=== PATIENT | female | born 1945 | race Caucasian/White ===

== ENCOUNTER 2017-03-28 20:58 | Emergency (ER) | payer MEDICARE, OTHER ==
[~2017-03-28] VITALS: Ht 162.6 cm; Wt 113.4 kg
[2017-03-28] MEDS ORDERED: LIDOCAINE VISCOUS MM STA (21:12)
[2017-03-28] MEDS ORDERED: LIDOCAINE VISCOUS ONE (21:16)
--- NOTE | 2017-03-28 21:21 | NUR ---
lab with pt
--- NOTE | 2017-03-28 21:22 | PCM.EKG ---
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
[2017-03-28 21:31] LABS: BASOPHIL % 0.3 % (0.0-0.2); EOSINOPHIL # 0.4 10^3/uL (0.0-0.2); HEMOGLOBIN 11.6 g/dL (12.0-15.0); LYMPHOCYTES # 2.6 10^3/uL (1.0-4.8); LYMPHOCYTES % 19.9 % (24.0-44.0); MEAN CELL HGB CONCENTRATION 32.5 g/dL (33-37); MEAN PLATELET VOLUME 9.4 fL (7.8-11.0); MONOCYTES # 1.1 10^3/uL (0.3-0.8); MONOCYTES % 8.7 % (5.0-12.0); NEUTROPHIL # 8.9 10^3/uL (1.8-7.7); NEUTROPHILS % 67.3 % (41.0-85.0); WHITE BLOOD CELL 13.1 10^3/uL (4.5-11.0)
[2017-03-28] MEDS ORDERED: FURO40TA4 PO (21:31)
[2017-03-28] MEDS ORDERED: POTA20TA14 PO (21:31)
[2017-03-28] MEDS ORDERED: MONT10TA6 PO (21:31)
[2017-03-28] MEDS ORDERED: CERA453C TP (21:31)
[2017-03-28] MEDS ORDERED: PANT40TA5 PO (21:31)
[2017-03-28] MEDS ORDERED: LOSA1TAB19 PO (21:31)
[2017-03-28] MEDS ORDERED: FLUT9.9S16 (21:31)
[2017-03-28] MEDS ORDERED: CETI10TA24 PO (21:31)
[2017-03-28] MEDS ORDERED: FLUO15OI TP (21:31)
[2017-03-28] MEDS ORDERED: MULT-678 PO (21:31)
[2017-03-28] MEDS ORDERED: METO25TA4 PO (21:31)
--- NOTE | 2017-03-28 21:31 | NUR ---
PORTABLE XRAY WITH PT
--- NOTE | 2017-03-28 21:42 | DIREP ---
PROCEDURE:CHEST 1 VIEW COMPARISON:None. INDICATIONS:cough, SOB FINDINGS: LUNGS/PLEURA:No confluent area of consolidation. No evidence of pleural effusion. Increased density at the left base due to overlapping breast tissue. VASCULATURE:Within normal limits. CARDIAC:No cardiomegaly. SILVIA/MEDIASTINUM:No visible mass or adenopathy. BONES:No acute fracture. OTHER:No additional findings. CONCLUSION: 1. No acute cardiopulmonary changes. Dictated by: Dario Sanchez M.D. on 03/28/2017 at 09:41 PM
[2017-03-28 21:54] LABS: CALCIUM 9.5 mg/dL (8.4-10.5); CARBON DIOXIDE 29.7 mmol/L (20.0-32)
[2017-03-28] MEDS ORDERED: DUONEB 0.5 MG-3 MG/3 ML SOLN IH STA (21:56)
[2017-03-28] MEDS ORDERED: SOLU-MEDROL IV STA (21:59)
[2017-03-28] MEDS ORDERED: MAGNESIUM-D5W 1 GM/100 ML SOLN 100 ML IV STA (21:59)
--- NOTE | 2017-03-28 21:59 | NUR ---
RT SCOTT WITH RT IN PT ROOM AT THIS TIME.
[2017-03-28] MEDS ORDERED: DUONEB 0.5 MG-3 MG/3 ML SOLN IH ONE (22:02)
[2017-03-28] MEDS ORDERED: SOLU-MEDROL ONE (22:15)
[2017-03-28] MEDS ORDERED: MAGNESIUM SULFATE 50 ML IV ONE (22:15)
--- NOTE | 2017-03-28 23:21 | ER.PDOC ---
General Chief Complaint: Cough/Congestion Stated Complaint: COUGH,VOMITING Time seen by MD: 21:20 Source: patient, family Exam Limitations: no limitations History of Present Illness Initial Comments pt has had persistent cough over the past few months , became acutely exacerbated this evening Timing/Duration: 4-6 hours Severity: moderate Activities at Onset: rest Prior Episodes/Possible Cause: chronic episodes (usually at night) Associated Symptoms: cough Allergies: Coded Allergies: oxymetazoline (Verified Allergy, Unknown, 03/28/17) phenylephrine (Verified Allergy, Unknown, 03/28/17) Home Meds Reported Medications Mu-Vits-Min Th/Lycopene/Lutein (CENTRUM SILVER TABLET) 1 Each Tablet, 1 EACH PO DAILY24, TABLET 03/28/17 Ceramides 1,3,6-11 (CERAVE) 453 Gm Cream..g., 453 GM TP BID 03/28/17 Fluocinonide (FLUOCINONIDE) 15 Gm Oint...g., 30 GM TP BID Y for .eczema 03/28/17 Montelukast Sodium (SINGULAIR) 10 Mg Tablet, 10 MG PO DAILY24, TABLET 03/28/17 Cetirizine Hcl (ZYRTEC) 10 Mg Tablet, 10 MG PO DAILY24, TABLET 03/28/17 Fluticasone Furoate (Flonase Sensimist) 27.5 Mcg/Actuation [place].susp, NA DAILY24 03/28/17 Potassium Chloride (POTASSIUM CHLORIDE) 20 Meq Tab.er.prt, 20 MEQ PO BID 03/28/17 Furosemide (FUROSEMIDE) 40 Mg Tablet, 40 MG PO DAILY24, TABLET 03/28/17 Pantoprazole Sodium (PANTOPRAZOLE SODIUM) 40 Mg Tablet.dr, 40 MG PO BID 03/28/17 Losartan/Hydrochlorothiazide (LOSARTAN-HCTZ 50-12.5 MG TAB) 1 Each Tablet, 1 EACH PO DAILY24, TABLET 03/28/17 Metoprolol Tartrate 25MG (LOPRESSER 25MG) 25 Mg Tablet, 25 MG PO BID for HYPERTENSION, #60 TAB 03/28/17 Past Medical History Medical History: thyroid disease Surgical History: cholecystectomy, hysterectomy, knee, shoulder, tonsillectomy Social History Smoking: non-smoker Alcohol Use: none Drug Use: none Review of Systems Constitutional: no symptoms reported EENTM: see HPI, throat pain Respiratory: see HPI, cough (increases at night) Cardiovascular: no symptoms reported Gastrointestinal: no symptoms reported Musculoskeletal: no symptoms reported Skin: no symptoms reported Psychiatric/Neurological: no symptoms reported Physical Exam General Appearance: Mild Distress HEENT: PERRL/EOMI, Normal ENT Inspection, TMs Normal, Pharynx Normal Neck: Non-Tender, Full Range of Motion, Supple, Normal Inspection Respiratory: chest non-tender, lungs clear, normal breath sounds, no respiratory distress, no accessory muscle use Cardiovascular: Normal Peripheral Pulses, Regular Rate, Rhythm, No Edema, No Gallop, No JVD, No Murmur Gastrointestinal: Normal Bowel Sounds, No Organomegaly, No Pulsatile Mass, Non Tender, Soft Neurologic/Psychiatric: paperhanger and painter II-XII NML as Tested, No Motor/Sensory Deficits, Alert, Normal Mood/Affect, Oriented x 3 Skin: Normal Color, Warm/Dry Lymphatic: No Adenopathy Results/Orders Results/Orders Laboratory Tests Test 03/28/17 21:18 White Blood Count 13.1 10^3/uL (4.5-11.0) Red Blood Count 4.15 10^6/uL (4.00-5.20) Hemoglobin 11.6 g/dL (12.0-15.0) Hematocrit 35.7 % (36.0-46.0) Mean Corpuscular Volume 86.0 fL (78-100) Mean Corpuscular Hemoglobin 28.0 pg (26-34) Mean Corpuscular Hemoglobin Concent 32.5 g/dL (33-37) Red Cell Distribution Width 14.0 % (11.5-14.5) Platelet Count 262 10^3/uL (150-400) Mean Platelet Volume 9.4 fL (7.8-11.0) Neutrophils (%) (Auto) 67.3 % (41.0-85.0) Lymphocytes (%) (Auto) 19.9 % (24.0-44.0) Monocytes (%) (Auto) 8.7 % (5.0-12.0) Neutrophils # (Auto) 8.9 10^3/uL (1.8-7.7) Lymphocytes # (Auto) 2.6 10^3/uL (1.0-4.8) Monocytes # (Auto) 1.1 10^3/uL (0.3-0.8) Absolute Immature Granulocyte (auto 0.10 10^3 u/L (0-2) Eosinophils % 3.0 % (0.0-5.0) Basophils % 0.3 % (0.0-0.2) Basophils # 0.0 10^3/uL (0.0-0.1) Eosinophil Count 0.4 10^3/uL (0.0-0.2) Sodium Level 140 mmol/L (132-145) Potassium Level 3.9 mmol/L (3.6-5.2) Chloride Level 102.0 mmol/L (96-109) Carbon Dioxide Level 29.7 mmol/L (20.0-32) Anion Gap 12.2 Blood Urea Nitrogen 24 mg/dL (7-18) Creatinine 1.70 mg/dL (0.59-1.40) Estimated GFR () 35.6 (>/=60) BUN/Creatinine Ratio 14.0 Glucose Level 158 mg/dL (70-110) Calcium Level 9.5 mg/dL (8.4-10.5) Magnesium Level 1.5 mg/dL (1.8-2.4) Total Bilirubin 0.3 mg/dL (0.2-1.0) Aspartate Amino Transf (AST/SGOT) 19 U/L (0-35) Alanine Aminotransferase (ALT/SGPT) 23 U/L (12-78) Alkaline Phosphatase 157 U/L (50-136) Pro-B-Type Natriuretic Peptide 111 pg/mL (0-125) Total Protein 7.6 g/dL (6.4-8.2) Albumin 3.4 g/dL (3.4-5.0) Globulin 4.2 Percent Immature Gran (Cell Imm) 0.80 % (0.00-0.50) Administered Medications Medications (Trade) Dose Ordered Sig/Tommy Route PRN Reason Start Time Stop Time Status Last Admin Dose Admin Lidocaine HCl (Lidocaine Viscous) 15 ml STAT STAT MM 03/28/17 21:12 03/28/17 21:16 DC 03/28/17 21:20 Albuterol/ Ipratropium (Duoneb 0.5 Mg-3 Mg/3 ml Soln) 3 ml STAT STAT IH 03/28/17 21:56 03/28/17 21:59 DC 03/28/17 21:59 Magnesium Sulfate/ Dextrose 100 ml @ 100 mls/hr OT STAT IV 03/28/17 21:59 03/28/17 22:58 DC 03/28/17 22:24 Methylprednisolone Sodium Succinate (Solu-Medrol) 125 mg STAT STAT IV 03/28/17 21:59 03/28/17 22:01 DC 03/28/17 22:24 Progress Progress pt low on magnesium will augment parenterally, give steroids for short course, fair response to bronchodilators EKG/XRAY/CT/US XRAY: chest XRAY Comments: WNL, no infiltrates Departure Time of Disposition: 23:15 Disposition: 01 HOME, SELF-CARE Impression: Primary Impression: Chronic asthmatic bronchitis with acute exacerbation Additional Impression: Allergic rhinitis Condition: Improved Referrals: PCP,UNKNOWN (PCP) PRIMARY CARE PROVIDER Additional Instructions: follow up with PCP in [place], may need to consider pulmonary workup Duration or Time Spent with Pa: 30 Problem Qualifiers Additional Impression: Allergic rhinitis Chronicity: unspecified Allergic rhinitis trigger: unspecified Allergic rhinitis seasonality: non-seasonal Qualified Codes: J30.89 - Other allergic rhinitis TRACI LLAMAS MD Mar 28, 2017 23:21
--- NOTE | 2017-03-28 23:31 | NUR ---
DISCHARGE DISCHARGE INSTRUCTIONS AND PRESCRIPTION MEDICATION DISCUSSED. PT AND FAMILY VERBALIZED UNDERSTANDING. ENCOURAGED TO RETURN FOR ANY CONCERNS.
[2017-03-28 23:35] VITALS: BP 116/60
== END 2017-03-28 23:31 | disposition home or self-care (01) ==
LOC: ER 20:58
DX: J44.1 Chronic obstructive pulmonary disease with (acute) exacerbation (principal); J00 Acute nasopharyngitis [common cold]; E07.9 Disorder of thyroid, unspecified; Z90.49 Acquired absence of other specified parts of digestive tract; Z90.710 Acquired absence of both cervix and uterus; Z79.899 Other long term (current) drug therapy
CPT/HCPCS: 36415; 71010; 80053; 83735; 83880; 85025; 87040 ×2; 93005; 94640; 96365; 96375; 99285; J2930; J3475; J3490; J7620

== ENCOUNTER 2018-03-17 13:22 | Emergency (ER) | payer MEDICARE, OTHER ==
[~2018-03-17] VITALS: Ht 162.6 cm; Wt 111.6 kg
[2018-03-17] VITALS (7 sets, daily range): BP systolic 118–141; BP diastolic 53–84
[~2018-03-17 13:22] MED LIST: CERA453C TP; CETI10TA24 PO; FLUO15OI TP; FLUT9.9S16; FURO40TA4 PO; LOSA1TAB19 PO; METO25TA4 PO; MONT10TA6 PO; MULT-678 PO; PANT40TA5 PO; POTA20TA14 PO
--- NOTE | 2018-03-17 13:42 | NUR ---
ARRIVAL TRANSPORTED TO ER # 4 VIA WHEELCHAIR. ALERT AND ORIENTED X3. C/O PAIN TO RIGHT SIDE OF FACE AT A 3/10 ON NUMERICAL SCALE. PT STATED, "I FELL LAST FRIDAY. I WENT TO URGENT CARE IN [facility]. I STARTED HAVING RIGHT SIDE FACE PAIN ABOUT 30 MINUTES AGO. WHILE RIDING IN A CAR FROM [place]." SHE FLEW IN FROM [place] TO [place] TODAY AT 1100.
--- NOTE | 2018-03-17 14:05 | NUR ---
EKG COMPLETE EKG COMPLETE. CHANGED INTO GOWN. EARTH SCIENCE TECHNICIAN AT BEDSIDE TO DRAW BLOOD.
--- NOTE | 2018-03-17 14:10 | ER.PDOC ---
General Chief Complaint: Dizziness Stated Complaint: DIZZINESS,FACIAL PAIN Time seen by MD: 14:07 Source: patient Exam Limitations: no limitations History of Present Illness Initial Comments Dizziness and right facial pain since falling 1 week ago and hitting her right face. Occurred: last week Severity: moderate Usually: walks w/o assistance Worsened By: nothing Allergies: Coded Allergies: oxymetazoline (Verified Allergy, Unknown, 03/28/17) phenylephrine (Verified Allergy, Unknown, 03/28/17) Home Meds Reported Medications Mu-Vits-Min Th/Lycopene/Lutein (CENTRUM SILVER TABLET) 1 Each Tablet, 1 EACH PO DAILY24, TABLET 03/28/17 Ceramides 1,3,6-11 (CERAVE) 453 Gm Cream..g., 453 GM TP BID 03/28/17 Fluocinonide (FLUOCINONIDE) 15 Gm Oint...g., 30 GM TP BID PRN for .eczema 03/28/17 Montelukast Sodium (SINGULAIR) 10 Mg Tablet, 10 MG PO DAILY24, TABLET 03/28/17 Cetirizine Hcl (ZYRTEC) 10 Mg Tablet, 10 MG PO DAILY24, TABLET 03/28/17 Fluticasone Furoate (Flonase Sensimist) 27.5 Mcg/Actuation [place].susp, NA DAILY24 03/28/17 Potassium Chloride (POTASSIUM CHLORIDE) 20 Meq Tab.er.prt, 20 MEQ PO BID 03/28/17 Furosemide (FUROSEMIDE) 40 Mg Tablet, 40 MG PO DAILY24, TABLET 03/28/17 Pantoprazole Sodium (PANTOPRAZOLE SODIUM) 40 Mg Tablet.dr, 40 MG PO BID 03/28/17 Losartan/Hydrochlorothiazide (LOSARTAN-HCTZ 50-12.5 MG TAB) 1 Each Tablet, 1 EACH PO DAILY24, TABLET 03/28/17 Metoprolol Tartrate 25MG (LOPRESSER 25MG) 25 Mg Tablet, 25 MG PO BID for HYPERTENSION, #60 TAB 03/28/17 Past Medical History Medical History: hypertension Surgical History: cholecystectomy, hysterectomy, knee, shoulder, tonsillectomy Social History Smoking: non-smoker Alcohol Use: none Drug Use: none Review of Systems Constitutional: no symptoms reported Mouth: no symptoms reported Throat: no symptoms reported Respiratory: no symptoms reported Cardiovascular: no symptoms reported Gastrointestinal: no symptoms reported All Other Systems: Reviewed and Negative Physical Exam General Appearance: alert, no distress EENT: PERRL Neck: supple Respiratory: no resp distress, breath sounds nml CVS: reg rate & rhythm, heart sounds.nml Abdomen: non-tender, no organomegaly, no distention Skin: color nml Extremities: non-tender, nml ROM, no pedal edema Neuro/Psych: nml orientation, nml speech/cognition, nml mood/affect Cranial Nerves: nml as tested, no evidence of acute CVA Sensorimotor: nml motor, nml sensation Comments Right facial tenderness, right periorbital ecchymosis, healing wound beneath the chin Results/Orders Results/Orders Laboratory Tests Test 03/17/18 14:05 03/17/18 14:15 Urine Collection Type UNKNOWN Urine Color STRAW (YELLOW) Urine Appearance CLEAR (CLEAR) Urine Bilirubin NEGATIVE MG/DL (NEGATIVE) Urine Ketones NEGATIVE (NEGATIVE) Urine Specific [place] 1.010 (1.005-1.035) Urine pH 6 (5.0-6.0) Urine Protein NEGATIVE (NEGATIVE) Urine Urobilinogen NORMAL (NEGATIVE) Urine Nitrate NEGATIVE (NEGATIVE) Urine Leukocyte Esterase 100/ul 1+ (NEGATIVE) Urine Blood NEGATIVE (NEGATIVE) Urine RBC NONE SEEN RBC/HPF (NONE Urine WBC 2-5 WBC/HPF (0-2) Urine Squamous Epithelial Cells FEW #/HPF (FEW) Urine Bacteria FEW (NONE SEEN) Urine Glucose NORMAL (NEGATIVE) White Blood Count 11.5 10^3/uL (4.5-11.0) Red Blood Count 4.44 10^6/uL (4.00-5.20) Hemoglobin 12.1 g/dL (12.0-15.0) Hematocrit 37.9 % (36.0-46.0) Mean Corpuscular Volume 85.4 fL (78-100) Mean Corpuscular Hemoglobin 27.3 pg (26-34) Mean Corpuscular Hemoglobin Concent 31.9 g/dL (33-37) Red Cell Distribution Width 13.5 % (11.5-14.5) Platelet Count 280 10^3/uL (150-400) Mean Platelet Volume 9.4 fL (7.8-11.0) Neutrophils (%) (Auto) 59.9 % (41.0-85.0) Lymphocytes (%) (Auto) 28.1 % (24.0-44.0) Monocytes (%) (Auto) 8.6 % (5.0-12.0) Neutrophils # (Auto) 6.9 10^3/uL (1.8-7.7) Lymphocytes # (Auto) 3.2 10^3/uL (1.0-4.8) Monocytes # (Auto) 1.0 10^3/uL (0.3-0.8) Absolute Immature Granulocyte (auto 0.04 10^3 u/L (0-2) Eosinophils % 2.9 % (0.0-5.0) Basophils % 0.2 % (0.0-0.2) Basophils # 0.0 10^3/uL (0.0-0.1) Eosinophil Count 0.3 10^3/uL (0.0-0.2) Sodium Level 142 mmol/L (132-145) Potassium Level 3.9 mmol/L (3.6-5.2) Chloride Level 105.0 mmol/L (96-109) Carbon Dioxide Level 28.4 mmol/L (20.0-32) Anion Gap 12.5 Blood Urea Nitrogen 19 mg/dL (7-18) Creatinine 1.25 mg/dL (0.59-1.40) Estimated GFR () 50.7 (>/=60) BUN/Creatinine Ratio 15.0 Glucose Level 128 mg/dL (70-110) Calcium Level 9.5 mg/dL (8.4-10.5) Total Bilirubin 0.3 mg/dL (0.2-1.0) Aspartate Amino Transf (AST/SGOT) 20 U/L (0-35) Alanine Aminotransferase (ALT/SGPT) 24 U/L (12-78) Alkaline Phosphatase 161 U/L (50-136) Total Creatine Kinase 55 U/L (26-192) Troponin I < 0.02 ng/mL (0.00-0.05) Total Protein 7.7 g/dL (6.4-8.2) Albumin 3.4 g/dL (3.4-5.0) Globulin 4.3 Percent Immature Gran (Cell Imm) 0.30 % (0.00-0.50) Progress Progress CT head shows: No acute intracranial abnormality. 2. Possible normal-pressure hydrocephalus. Clinical correlation is recommended. Patient understands that she has to follow up with her PCP for incidental finding on CT head. EKG/XRAY/CT/US XRAY: chest (No active disease) Departure Time of Disposition: 14:58 Disposition: 01 HOME, SELF-CARE Impression: Primary Impression: Contusion of face Additional Impression: Dizziness and giddiness Condition: Stable Referrals: PCP,UNKNOWN (PCP) PRIMARY CARE PROVIDER Additional Instructions: F/U with your PCP in 2-3 days Duration or Time Spent with Pa: 60 mins Problem Qualifiers Primary Impression: Contusion of face Encounter type: initial encounter Qualified Codes: S00.83XA - Contusion of other part of head, initial encounter GAVI,MARIA VICTORIA Becerra MD Mar 17, 2018 14:10
[2018-03-17 14:14] LABS: BILIRUBIN,URINE NEGATIVE (NEGATIVE); UROBILINOGEN,URINE NORMAL (NEGATIVE)
[2018-03-17 14:19] LABS: BASOPHIL % 0.2 % (0.0-0.2); EOSINOPHIL # 0.3 10^3/uL (0.0-0.2); EOSINOPHIL % 2.9 % (0.0-5.0); HEMOGLOBIN 12.1 g/dL (12.0-15.0); LYMPHOCYTES # 3.2 10^3/uL (1.0-4.8); LYMPHOCYTES % 28.1 % (24.0-44.0); MEAN CELL HGB 27.3 pg (26-34); MEAN CELL HGB CONCENTRATION 31.9 g/dL (33-37); MEAN CORP VOLUME 85.4 fL (78-100); MEAN PLATELET VOLUME 9.4 fL (7.8-11.0); MONOCYTES % 8.6 % (5.0-12.0); NEUTROPHIL # 6.9 10^3/uL (1.8-7.7); NEUTROPHILS % 59.9 % (41.0-85.0); RED CELL DISTRIBUTION WIDTH 13.5 % (11.5-14.5); WHITE BLOOD CELL 11.5 10^3/uL (4.5-11.0)
--- NOTE | 2018-03-17 14:20 | NUR ---
RAD/CT PT TAKEN TO RAD/CT VIA STRETCHER
[2018-03-17 14:26] LABS: APPEARANCE,URINE CLEAR (CLEAR); UA COLOR STRAW (YELLOW)
--- NOTE | 2018-03-17 14:33 | DIREP ---
PROCEDURE:CT HEAD WITHOUT CONTRAST TECHNIQUE:Axial cuts were obtained through the head, without intravenous contrast material. The images were viewed at brain and bone settings. COMPARISON:None. INDICATIONS:Dizziness FINDINGS: VENTRICLES:Prominent out of proportion to the amount of cortical atrophy. CEREBRUM:Mild cortical atrophy. No intracranial hemorrhage, large territory infarct or space-occupying mass. CEREBELLUM:Normal. BRAINSTEM:Normal. SKULL:Normal. SINUSES:Clear. OTHER:None CONCLUSION: 1. No acute intracranial abnormality. 2. Possible normal-pressure hydrocephalus. Clinical correlation is recommended. Dictated by: Lyndsey Hanna MD on 03/17/2018 at 02:30 PM
--- NOTE | 2018-03-17 14:36 | DIREP ---
PROCEDURE:CHEST 1 VIEW COMPARISON:[facility], CR, XRAY CHEST SINGLE VW, 03/28/2017, 09:23 PM. INDICATIONS:Dizziness FINDINGS: LUNGS/PLEURA:No significant pulmonary parenchymal abnormalities or pleural effusion. CARDIAC:Normal cardiac silhouette and normal pulmonary vascularity. MEDIASTINUM:Normal. BONES:Bilateral shoulder arthroplasties. OTHER:No additional findings. CONCLUSION:No acute cardiopulmonary process or significant change. Dictated by: Lyndsey Hanna MD on 03/17/2018 at 02:33 PM
[2018-03-17 14:46] LABS: ALANINE AMINOTRANSFERASE(ML) 24 U/L (12-78); ALKALINE PHOSPHATASE 161 U/L (50-136); ASPARTATE AMINO TRANSFERASE 20 U/L (0-35); CALCIUM 9.5 mg/dL (8.4-10.5); CARBON DIOXIDE 28.4 mmol/L (20.0-32); GLUCOSE 128 mg/dL (70-110)
--- NOTE | 2018-03-17 16:11 | PCM.EKG ---
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
== END 2018-03-17 15:12 | disposition home or self-care (01) ==
LOC: ER 13:22
DX: S00.11XA Contusion of right eyelid and periocular area, initial encounter (principal); I10 Essential (primary) hypertension; R42 Dizziness and giddiness; Z88.8 Allergy status to other drugs, medicaments and biological substances; Z79.899 Other long term (current) drug therapy; Z90.49 Acquired absence of other specified parts of digestive tract; Z90.710 Acquired absence of both cervix and uterus; Z90.89 Acquired absence of other organs; W19.XXXA Unspecified fall, initial encounter; Y93.89 Activity, other specified; Y92.89 Other specified places as the place of occurrence of the external cause; Y99.8 Other external cause status
CPT/HCPCS: 36415; 70450; 71045; 80053; 81000; 82550; 84484; 85025; 87086; 93005; 99284